=== PATIENT | male | born 1950 | race Caucasian/White ===

== ENCOUNTER → 2017-04-06 | Outpatient (CLI) | payer MEDICARE, OTHER ==
[~2017-04-06] MED LIST: HYDROCHLOROTH12.5 M3 PO; HYDROCHLOROTHIA25 MG PO; NORVASC10 MG G-TUBE; NORVASC10 MG PO; PERCOCET 5/31 TABLET PO; TOPROL XL50 MG PO
== END | disposition home or self-care (01) ==
LOC: CDC 11:54
DX: Z01.810 Encounter for preprocedural cardiovascular examination (principal); N20.0 Calculus of kidney; R00.1 Bradycardia, unspecified; I44.0 Atrioventricular block, first degree; I45.10 Unspecified right bundle-branch block; R94.31 Abnormal electrocardiogram [ECG] [EKG]
CPT/HCPCS: 93000